=== PATIENT | male | born 1955 | race Caucasian/White ===

== ENCOUNTER 2018-04-16 03:45 | Emergency (ER) | payer SELFPAY ==
[~2018-04-16] VITALS: Ht 167.6 cm; Wt 71.8 kg
[2018-04-16] MEDS ORDERED: METFORMIN HYD1000 MG PO (03:57)
[2018-04-16] MEDS ORDERED: LEVEMIR FLEX100 U/ML SQ (03:57)
[2018-04-16 04:46] LABS: HEMATOCRIT 36.9 % (42.0-52.0); HEMOGLOBIN 13.1 g/dL (13.5-18.0); MEAN CELL VOLUME 83 fl (78-100); MEAN CORPUSCULAR HEMOGLOBIN 29 pg (27-31); MEAN CORPUSCULAR HGB CONC 36 g/dL (33-37); MEAN PLATELET VOLUME 9.8 fl (7.4-10.4); PLATELET COUNT 237 K/mm3 (130-400); RED BLOOD COUNT 4.46 M/mm3 (4.20-5.60); RED CELL DISTRIBUTION WIDTH 13.9 % (11.5-14.5)
[2018-04-16 04:47] LABS: ALBUMIN 3.6 g/dL (3.5-5.0); BUN/CREATININE RATIO 27.7 (6.0-26.0); CALCIUM 9.4 mg/dL (8.4-10.2); POTASSIUM 4.6 mmol/L (3.6-5.0); TOTAL BILIRUBIN 1.1 mg/dL (0.2-1.3); TOTAL PROTEIN 7.7 g/dL (6.3-8.2)
[2018-04-16 05:08] LABS: LYMPHOCYTE 16 % (20-51); MONOCYTE 14 % (3-10); NEUTROPHILS 70 % (42-75)
[2018-04-16] MEDS ORDERED: NORCO 325 MG-51 TA1 PO (08:44)
[2018-04-16 09:14] VITALS: BP 122/78
== END 2018-04-16 10:15 | disposition home or self-care (01) ==
LOC: ED 03:45
PROVIDERS: Nurse Practitioner Primary Care
DX: I83.892 Varicose veins of left lower extremity with other complications (principal); Z79.4 Long term (current) use of insulin; F17.200 Nicotine dependence, unspecified, uncomplicated; E11.9 Type 2 diabetes mellitus without complications
CPT/HCPCS: J2270; J2405; J7030

== ENCOUNTER 2022-04-04 14:07 | Emergency (ER) | payer MEDICARE ==
[~2022-04-04 14:07] MED LIST: LEVEMIR FLEX100 U/ML SQ; METFORMIN HYD1000 MG PO; NORCO 325 MG-51 TA1 PO
[2022-04-04 14:22] VITALS: BP 138/87
[2022-04-04] MEDS ORDERED: CYCLOBENZ5 MG PO (15:18)
== END 2022-04-04 15:18 | disposition home or self-care (01) ==
LOC: ED 14:07
DX: M62.838 Other muscle spasm (principal); F17.200 Nicotine dependence, unspecified, uncomplicated; Z28.310 Unvaccinated for COVID-19

== ENCOUNTER → 2022-04-26 | Outpatient (CLI) | payer MEDICARE ==
[~2022-04-26] MED LIST changes: +CYCLOBENZ5 MG PO
[2022-04-26 09:09] LABS: BASO # 0.06 K/mm3 (0.02-0.10); EOS # 0.12 K/mm3 (0.04-0.40); EOS % 2.1 % (0.0-4.0); HEMATOCRIT 39.3 % (42.0-52.0); HEMOGLOBIN 14.2 g/dL (13.5-18.0); MEAN CELL VOLUME 94 fl (78-100); MEAN CORPUSCULAR HEMOGLOBIN 34 pg (27-31); MEAN CORPUSCULAR HGB CONC 36 g/dL (33-37); MEAN PLATELET VOLUME 9.4 fl (7.4-10.4); MONO # 0.53 K/mm3 (0.20-0.80); NEU # 3.14 K/mm3 (1.40-6.50); PLATELET COUNT 156 K/mm3 (130-400); RED CELL DISTRIBUTION WIDTH 14.9 % (11.5-14.5); WHITE BLOOD COUNT 5.7 K/mm3 (4.8-10.8)
[2022-04-26 09:12] LABS: ALBUMIN 4.3 g/dL (3.4-4.8); POTASSIUM 4.3 mmol/L (3.5-5.1)
[2022-04-26 09:13] LABS: CALCIUM 10.1 mg/dL (8.3-10.5)
[2022-04-26 09:15] LABS: TOTAL PROTEIN 8.7 g/dL (6.2-8.1)
[2022-04-26 09:17] LABS: TOTAL BILIRUBIN 0.9 mg/dL (0.2-1.2)
[2022-04-26 09:21] LABS: MAGNESIUM 1.94 mg/dL (1.60-2.60)
[2022-04-26 12:45] LABS: ERYTHROCYTE SEDIMENTATION RATE 39 mm/hr (0-20)
[2022-04-27 01:36] LABS: TESTOSTERONE 293 ng/dL (221-716)
[2022-05-02 09:49] LABS: A/G RATIO (PEP) 0.86 (()); BETA GLOBULINS (PEP) 1.3 g/dL (0.7-1.2)
== END ==
LOC: LAB 08:24
PROVIDERS: Internal Medicine
DX: E11.9 Type 2 diabetes mellitus without complications (principal); K90.9 Intestinal malabsorption, unspecified; J44.9 Chronic obstructive pulmonary disease, unspecified; G63 Polyneuropathy in diseases classified elsewhere; I10 Essential (primary) hypertension; I25.10 Atherosclerotic heart disease of native coronary artery without angina pectoris; E78.2 Mixed hyperlipidemia; F52.21 Male erectile disorder

== ENCOUNTER → 2022-06-10 | Outpatient (CLI) | payer MEDICARE ==
[2022-06-11 11:00] LABS: ANA SCREEN with REFLEX Negative (Negative)
[2022-06-14 11:50] LABS: IGG SUBCLASS 1 1151.9 mg/dL (()); IGG SUBCLASS 2 204.2 mg/dL (()); IGG SUBCLASS 3 69.4 mg/dL (()); IGG SUBCLASS 4 49.9 mg/dL (3.9-86.4); IGG TOTAL 1608 mg/dL (610-1616)
== END ==
LOC: LAB 12:02
PROVIDERS: Internal Medicine
DX: D89.0 Polyclonal hypergammaglobulinemia (principal)

== ENCOUNTER 2022-06-23 10:05 | Emergency (ER) | payer MEDICARE ==
[~2022-06-23] VITALS: Ht 167.6 cm; Wt 75.0 kg
[2022-06-23] MEDS ORDERED: ACETAMINOPHEN-H1 TA1 PO (10:26)
[2022-06-23] MEDS ORDERED: ZOFRAN ODT4 MG PO (10:28)
[2022-06-23] MEDS ORDERED: GABAPENTIN TAB600 MG PO (10:29)
[2022-06-23] MEDS ORDERED: CLOPIDOGREL75 M2 PO (10:30)
[2022-06-23] MEDS ORDERED: GLIMEPIRIDE4 MG PO (10:31)
[2022-06-23 11:15] LABS: BASO # 0.02 K/mm3 (0.02-0.10); EOS # 0.01 K/mm3 (0.04-0.40); EOS % 0.1 % (0.0-4.0); HEMATOCRIT 46.3 % (42.0-52.0); HEMOGLOBIN 16.8 g/dL (13.5-18.0); LYMPH# 1.52 K/mm3 (1.50-4.00); MEAN CELL VOLUME 96 fl (78-100); MEAN CORPUSCULAR HEMOGLOBIN 35 pg (27-31); MEAN CORPUSCULAR HGB CONC 36 g/dL (33-37); MEAN PLATELET VOLUME 9.3 fl (7.4-10.4); MONO # 0.75 K/mm3 (0.20-0.80); NEU # 7.44 K/mm3 (1.40-6.50); PLATELET COUNT 125 K/mm3 (130-400); RED BLOOD COUNT 4.83 M/mm3 (4.20-5.60); RED CELL DISTRIBUTION WIDTH 14.7 % (11.5-14.5); WHITE BLOOD COUNT 9.8 K/mm3 (4.8-10.8)
[2022-06-23 11:25] LABS: ALBUMIN 4.4 g/dL (3.4-4.8)
[2022-06-23 11:26] LABS: POTASSIUM 3.8 mmol/L (3.5-5.1)
[2022-06-23 11:27] LABS: CALCIUM 9.5 mg/dL (8.3-10.5)
[2022-06-23 11:28] LABS: TOTAL PROTEIN 8.9 g/dL (6.2-8.1)
[2022-06-23 11:30] LABS: TOTAL BILIRUBIN 2.1 mg/dL (0.2-1.2)
[2022-06-23] MEDS ORDERED: PANTOPRAZOLE SO40 MG PO (15:34)
[2022-06-23 15:44] VITALS: BP 153/100
== END 2022-06-23 15:45 | disposition home or self-care (01) ==
LOC: ED 10:05
PROVIDERS: Family Medicine
DX: K21.9 Gastro-esophageal reflux disease without esophagitis (principal); F11.23 Opioid dependence with withdrawal; Z20.822 Contact with and (suspected) exposure to COVID-19; Z28.310 Unvaccinated for COVID-19
CPT/HCPCS: J2270; J3490; J7030

== ENCOUNTER → 2022-12-06 | Outpatient (CLI) | payer MEDICARE ==
[~2022-12-06] MED LIST changes: +ACETAMINOPHEN-H1 TA1 PO; +CLOPIDOGREL75 M2 PO; +GABAPENTIN TAB600 MG PO; +GLIMEPIRIDE4 MG PO; +PANTOPRAZOLE SO40 MG PO; +ZOFRAN ODT4 MG PO
[2022-12-06 14:24] LABS: BASO # 0.04 K/mm3 (0.02-0.10); EOS # 0.12 K/mm3 (0.04-0.40); EOS % 2.9 % (0.0-4.0); HEMATOCRIT 36.8 % (42.0-52.0); HEMOGLOBIN 12.9 g/dL (13.5-18.0); LYMPH# 1.35 K/mm3 (1.50-4.00); MEAN CELL VOLUME 95 fl (78-100); MEAN CORPUSCULAR HEMOGLOBIN 33 pg (27-31); MEAN CORPUSCULAR HGB CONC 35 g/dL (33-37); MEAN PLATELET VOLUME 9.9 fl (7.4-10.4); MONO # 0.32 K/mm3 (0.20-0.80); NEU # 2.27 K/mm3 (1.40-6.50); PLATELET COUNT 109 K/mm3 (130-400); RED BLOOD COUNT 3.86 M/mm3 (4.20-5.60); RED CELL DISTRIBUTION WIDTH 13.8 % (11.5-14.5); WHITE BLOOD COUNT 4.1 K/mm3 (4.8-10.8)
[2022-12-06 14:30] LABS: POTASSIUM 4.5 mmol/L (3.5-5.1)
[2022-12-06 14:31] LABS: ALBUMIN 3.6 g/dL (3.4-4.8)
[2022-12-06 14:32] LABS: CALCIUM 9.6 mg/dL (8.3-10.5)
[2022-12-06 14:33] LABS: TOTAL PROTEIN 7.1 g/dL (6.2-8.1)
[2022-12-06 14:47] LABS: URINE APPEARANCE CLEAR; URINE COLOR DARK YELLOW; URINE PROTEIN(semi-quant) TRACE (NEGATIVE)
[2022-12-06 14:48] LABS: URINE BILIRUBIN NEGATIVE (NEGATIVE); URINE BLOOD TRACE (NEGATIVE); URINE KETONE NEGATIVE (NEGATIVE); URINE LEUKOCYTE ESTERASE NEGATIVE (NEGATIVE); URINE NITRATE NEGATIVE (NEGATIVE); URINE UROBILINOGEN 4 mg/dL (NORMAL); URINE WBC 0-1 /hpf (0-3)
== END ==
LOC: LAB 13:52
PROVIDERS: Internal Medicine
DX: D89.0 Polyclonal hypergammaglobulinemia (principal); E11.9 Type 2 diabetes mellitus without complications; J44.9 Chronic obstructive pulmonary disease, unspecified; G63 Polyneuropathy in diseases classified elsewhere; I10 Essential (primary) hypertension; I25.10 Atherosclerotic heart disease of native coronary artery without angina pectoris; E78.2 Mixed hyperlipidemia; K90.9 Intestinal malabsorption, unspecified; F52.21 Male erectile disorder